=== PATIENT | female | born 2000 | race African-American/Black ===

== ENCOUNTER 2020-02-05 05:46 | Emergency (ER) | payer MEDICAID, SELFPAY ==
[2020-02-05 05:47] VITALS: BP 150/93; PULSE 85; RESP 16; TEMP 36.6; O2SAT 100; BMI 49.1
--- NOTE | 2020-02-05 05:57 | EKG12_ITS ---
Test Reason : CP Blood Pressure : / mmHG Vent. Rate : 076 BPM Atrial Rate : 076 BPM P-R Int : 134 ms QRS Dur : 090 ms QT Int : 390 ms P-R-T Axes : 023 044 025 degrees QTc Int : 438 ms Normal sinus rhythm with sinus arrhythmia Normal ECG Confirmed by RAFIA ACOSTA, ADARSH ([id number]), script editor NATALIE CRANE ([id number]) on 02/05/2020 1:27:12 PM Referred By: WANDA Confirmed By:ADARSH MORATAYA MD
--- NOTE | 2020-02-05 05:58 | ED.VISSUMM ---
- ER Visit Summary Date of Service: 02/05/20 Chief Complaint: Chest pain History of Present Illness: The patient is a [address] Saravia. She reports she was awakened from sleep today 3:30 AM by a sharp stabbing chest pain. Is 10 on 10 at worst and 7-10 currently. Is worsened by laying down. Sexually relieved by exertion. States that she took ibuprofen without relief. She reports she is been nausea and vomited twice. No blood in her emesis. Denies any shortness of breath or diaphoresis with this. Patient has no personal or family history of DVT. No recent travel. No ankle swelling or calf pain. On review of systems patient reports that she had dysuria and frequency for the past 2 days. Physical Examination: Vitals: Stable. Afebrile. General: Well-nourished and well-developed. Head: Normocephalic atraumatic. Neck: Supple, no lymphadenopathy. No JVD. Nontender. Cardiovascular: Regular rate and rhythm. No murmurs. Respiratory: No respiratory distress. Clear to auscultation bilaterally. Abdominal: Soft, nontender, nondistended, normal bowel sounds. No guarding, rebound, or peritoneal signs. Back: Nontender. Extremities: Nontender, no edema. Skin: Normal color, no rash. Neurologic: Alert and oriented ?3. Cranial nerves II through XII are intact. Normal strength and sensation. Psych: Normal affect. Test Results: EKG is sinus at [address] changes. CBC shows a white count of 12.2 and a hemoglobin 11.8. UA is negative. test is negative. BMP shows a chloride of 108. Chest x-ray is normal. Emergency Department Course and Treatment: Patient was given Zofran IV and a GI cocktail p.o. with significant relief. Treatment Plan: Patient will be discharged with Prilosec. Instructed to follow-up with her primary care physician in 3 to 5 days if not improving. Return to the emergency department for any worsening symptoms. Disposition: To home in improved and stable condition. Impression: 1. Atypical chest pain. 2. Dysuria. This note was generated with [employer] software. It may contain incorrect words, spelling, and punctuation that were not noted in review of the chart prior to signing ED Disposition - Plan for ED Patient: Instructions: ED Chest Pain Atypical Unkn Cause Prescriptions: Omeprazole [Prilosec] 20 mg PO DAILY #30 cap Prescription Printed Referrals: Dontrell Saravia MD [Primary Care Provider] - 3-5 Days if not improving
[2020-02-05] MEDS: Mag Hydrox/Al Hydrox/Simeth 30 ML UDC PO (06:05)
[2020-02-05] MEDS: Ondansetron 4 MG/2 ML Vial IV (06:05)
[2020-02-05 06:09] LABS: Absolute Lymphocyte Count 3.27 X10^3/uL (0.83-4.51); Absolute Neutrophil Count 7.5 X10^3/uL (2.0-7.7); Basophil# 0.05 X10^3/uL; Basophil% 0.4 % (0-1); Eosinophil# 0.58 X10^3/uL; Eosinophils% 4.8 % (0-5); Hematocrit 39.2 % (37-47); Hemoglobin 11.8 g/dL (12.0-15.0); Lymphocyte # 3.27 X10^3/ul (4.0); Lymphocyte % 26.9 % (19-41); Mean Corp Hgb Conc 30.1 g/dL (32-36); Mean Corpuscular Hgb 22.8 pg (27.0-32.0); Mean Corpuscular Volume 75.8 fL (81-99); Mean Platelet Vol. 10.1 fl (6.2-12.0); Monocyte% 5.8 % (0-10); NRBC Flagged by Analyzer 0 % (0-5); Neutrophil # 7.52 X10^3/uL (2.7-7.7); Neutrophil % 61.9 % (47-70); Platelet Count 418 K/mm3 (150-450); RBC Distribution Width CV 15.1 % (11.6-14.6); RBC Distribution Width SD 41.1 fl (35.1-43.9); Red Blood Count 5.17 M/mm3 (4.2-5.4); White Blood Count 12.2 K/mm3 (4.4-11.0)
--- NOTE | 2020-02-05 06:10 | RAD_ITS ---
STUDY: X-RAY CHEST REASON FOR EXAM: Female, 19 years old patient with chest pain, nausea and vomiting. TECHNIQUE: Single AP portable view of the chest. COMPARISON: 08-29-15. FINDINGS: The lungs are clear and expanded. There is no demonstrated pleural abnormality. There is borderline cardiomegaly. Normal mediastinum and dot. Normal visualized pulmonary arteries. Normal visualized aortic arch and descending thoracic aorta. Normal visualized thoracic spine. Normal visualized ribs, clavicles, and shoulders. There is no demonstrated abnormality of the visualized soft tissue structures of the upper abdomen. RAD/Chest 1 View (Portable) IMPRESSION: No radiographic evidence of acute cardiopulmonary disease. Electronically Signed: Nasrin Awad MD at 6:43 EDT , Service support ,
[2020-02-05 06:13] LABS: Mucous, Urine 0 SEEN /hpf (<or=2+); Squamous Epithelial Cells - UA 0 SEEN /hpf (5-10)
[2020-02-05 06:15] LABS: Color, Urine Yellow (Yellow); Glucose, Dipstick Normal (Normal); Ketone-Dipstick Negative (Negative); Leukocyte Esterase-Dipstick Negative /ul (Negative); Nitrite-Dipstick Negative (Negative); Occult Blood-Urine 10 /ul (Negative); Protein-Dipstick Negative (Negative); Urine Bilirubin Dipstick Negative (Negative); Urine Clarity Clear (Clear); Urine Urobilinogen Normal (Normal)
[2020-02-05 06:24] LABS: Amorphous Sediment 1+; Bacteria 3+ /hpf (None Seen); Red Blood Cells-Urine 0-5 SEEN /hpf (0-5); White Blood Cells 0-5 SEEN /hpf (0-5)
[2020-02-05 06:28] LABS: Internal QC Validated? YES +Cl - CLEAR BKGD; Pregnancy, Urine Negative Negative
[2020-02-05 06:39] LABS: Anion Gap 3 (5-15); BUN 8 mg/dL (7-18); BUN/Creat Ratio 10.8 RATIO (10-20); Calcium,Total 8.7 mg/dL (8.5-10.1); Chloride 108 mmol/L (98-107); Creatinine, Serum 0.74 mg/dL (0.55-1.02); EST Glomerular Filtration Rate 107 mL/min (>60); Est Glom Filt Rate - Afr Amer 129 mL/min (>60); Estimated Creatinine Clearance 114.47 ml/min; Glucose 106 mg/dL (74-106); Potassium 4.2 mmol/L (3.5-5.1); Sodium Level 138 mmol/L (136-145)
[2020-02-05 06:55] VITALS: BP 134/71; PULSE 78; RESP 18; O2SAT 99
== END 2020-02-05 07:34 | disposition home or self-care (01) ==
LOC: ED 06:31
PROVIDERS: Emergency Provider Emergency Medicine; PCP Pediatrics
DX: R07.9 Chest pain, unspecified (principal); R30.0 Dysuria
CPT/HCPCS: 71045; 80048; 81001; 81025; 85025; 93005; 96374; 99285; A4216; J2405

== ENCOUNTER 2020-09-08 15:30 | Emergency (ER) | payer MEDICAID, SELFPAY ==
[2020-09-08 15:32] VITALS: BP 153/59; PULSE 111; RESP 16; TEMP 36.4; O2SAT 97; BMI 42.3
[2020-09-08] MEDS: Lidocaine 1% (20 ml mdv) 20 ML Vial INFILT (15:56)
--- NOTE | 2020-09-08 16:02 | ED.DCSUM_ITS ---
- ER Visit Summary Date of Service: 09/08/20 Chief Complaint: Left hand laceration History of Present Illness: The patient is a 20 F presenting with left hand laceration. Patient was washing dishes. She states she slipped and fell. She fell onto a broken glass. She lacerated her left second and third digit. Her tetanus is up-to-date. No other injuries. Physical Examination: Vitals are stable. Patient is afebrile. Alert no acute distress. HEENT exam is unremarkable. Neck is supple. Lungs are clear and equal bilaterally. Heart is regular rate and rhythm. Abdomen is soft nontender nondistended. Extremities left 2nd digit 1cm distal laceration. Skin avulsion left third dig it. Tendon function is intact. Nailbed is intact. Normal cap refill. Skin is warm and dry. Remainder of exam is unremarkable. Emergency Department Course and Treatment: Left hand x-ray read by myself and radiology shows normal x-ray examination of the hand. Wound was irrigated. Digital block was performed with lidocaine. Irrigated with saline. 2, 5-0 simple sutures were placed. Advised wound care instructions. Advised return to the ED for worsening complaints. Disposition: Discharge home Impression: Left hand laceration, laceration repair This note was generated with [employer] dictation software. It may contain incorrect words, spelling, and punctuation that were not noted in review of the chart prior to signing ED Disposition - Plan for ED Patient: Instructions: ED Laceration, Hand: All Closures Referrals: Dontrell Saravia MD [Primary Care Provider] -
--- NOTE | 2020-09-08 16:05 | RAD_ITS ---
STUDY: X-RAY - LEFT HAND REASON FOR EXAM: Female, 20 years old. fall, lac TECHNIQUE: 3 view(s) of the hand. COMPARISON: None. FINDINGS: Normal radiocarpal articulation. Normal distal radioulnar joint. Normal visualized carpal bones. Normal carpal articulations Normal carpometacarpal articulation of the thumb. Normal second through fifth carpometacarpal joints. Normal metacarpi. Normal metacarpophalangeal joint of the thumb. Normal interphalangeal joint of the thumb. Normal proximal and distal phalanges of the thumb. Normal metacarpophalangeal joints of the second through fifth fingers. Normal proximal and distal interphalangeal joints of the second through fifth fingers. Normal phalanges of the second through fifth fingers. The soft tissue structures are unremarkable. RAD/Hand Min 3 Views IMPRESSION: Normal x-ray examination of the hand. Electronically Signed: Manuel Ernst MD ([place]) at 16:25 EST , Service support ,
--- NOTE | 2020-09-08 16:05 | ED.DEP ---
ED Disposition - Plan for ED Patient: Instructions: ED Laceration, Hand: All Closures Referrals: Dontrell Saravia MD [Primary Care Provider] -
== END 2020-09-08 17:03 | disposition home or self-care (01) ==
LOC: ED 16:20
PROVIDERS: Emergency Provider Emergency Medicine; PCP Pediatrics
DX: S61.412A Laceration without foreign body of left hand, initial encounter (principal); Y93.G1 Activity, food preparation and clean up; W01.0XXA Fall on same level from slipping, tripping and stumbling without subsequent striking against object, initial encounter
CPT/HCPCS: 12001; 73130; 99282

== ENCOUNTER 2022-07-16 04:44 | Emergency (ER) | payer MEDICAID, SELFPAY ==
[2022-07-16 04:47] VITALS: BP 140/95; PULSE 71; RESP 16; TEMP 36.5; O2SAT 100; BMI 43.1
--- NOTE | 2022-07-16 05:09 | EKG12_ITS ---
Test Reason : DYSRHYTHMIA Blood Pressure : / mmHG Vent. Rate : 063 BPM Atrial Rate : 063 BPM P-R Int : 136 ms QRS Dur : 086 ms QT Int : 432 ms P-R-T Axes : 022 035 017 degrees QTc Int : 442 ms Normal sinus rhythm with sinus arrhythmia Normal ECG Confirmed by PIETER ACOSTA, APARNA ([id number]), editor news ALISHA CLARK ([id number]) on 07/20/2022 10:09:34 AM Referred By: TOBIAS Confirmed By:MINA STAPLETON MD
[2022-07-16] MEDS: 0.9% Normal Saline 1,000 ML 999 ML IV (05:20)
[2022-07-16] MEDS: LORazepam 2 MG/ML Syringe 1 MG IV (05:20)
[2022-07-16 05:28] LABS: Absolute Lymphocyte Count 2.56 X10^3/uL (0.83-4.51); Absolute Neutrophil Count 6.3 X10^3/uL (2.0-7.7); Basophil# 0.03 X10^3/uL; Basophil% 0.3 % (0-1); Eosinophil# 0.09 X10^3/uL; Eosinophils% 0.9 % (0-5); Hematocrit 38.9 % (37-47); Hemoglobin 12.1 g/dL (12.0-15.0); Lymphocyte # 2.56 X10^3/ul (0.83-4.51); Lymphocyte % 26.5 % (19-41); Mean Corp Hgb Conc 31.1 g/dL (32-36); Mean Corpuscular Hgb 24.4 pg (27.0-32.0); Mean Corpuscular Volume 78.4 fL (81-99); Mean Platelet Vol. 10.4 fl (6.2-12.0); Monocyte# 0.71 X10^3/uL; Monocyte% 7.3 % (0-10); NRBC Flagged by Analyzer 0 % (0-5); Neutrophil # 6.26 X10^3/uL (2.7-7.7); Neutrophil % 64.8 % (47-70); Platelet Count 356 K/mm3 (150-450); RBC Distribution Width CV 13.7 % (11.6-14.6); RBC Distribution Width SD 38.6 fl (35.1-43.9); Red Blood Count 4.96 M/mm3 (4.2-5.4); White Blood Count 9.7 K/mm3 (4.4-11.0)
--- NOTE | 2022-07-16 05:33 | EDS_ITS ---
HPI History of Present Illness Chief Complaint: Chest Pain Narrative Narrative: Patient is a 22-year-old female with remote history of depression/anxiety. She states that roughly 1 to 2 years ago she was started on medication to help with her symptoms but it made her feel like a zombie so she stopped taking it. She states that over the past 1 to 2 days she has had a few bouts of nausea and vomiting. She states that this evening she was sleeping when she awoke around 2:30 in the morning and was feeling very anxious. She states with that she noticed some chest discomfort. She denies any illicit drug use and she denies any known cardiac history at a young age in her family. She also denies any recent surgery travel or history of DVT/PE. She states she tried home techniques to get her symptoms under control but cannot do so and therefore EMS was called and brings her in for evaluation. [facility] Medical History Anxiety Asthma Home Medications buspirone 7.5 mg tablet 7.5 mg PO BID 30 days #60 tabs 07/16/22 [Rx Last Taken Unknown] ibuprofen 600 mg tablet 600 mg PO 4X/DAY PRN PRN pain #40 tabs 07/16/22 [Rx Last Taken Unknown] ondansetron 4 mg disintegrating tablet 4 mg PO TID PRN nausea and vomiting #21 tabs 07/16/22 [Rx Last Taken Unknown] Allergy/AdvReac Type Severity Reaction Status Date / Time No Known Allergies Allergy Verified 07/16/22 04:46 Surgical History no surgical history Social History Smoking Status: Current some day smoker tobacco type: e-cigarettes [facility] [place] ED Constitutional Constitutional ED: Denies chills or fever(s) ENT ENT ED: Denies sore throat Cardiovascular Cardiovascular: Reports chest pain Respiratory/Chest Respiratory/Chest: Denies cough or dyspnea Gastrointestinal Gastrointestinal: Reports nausea and vomiting; Denies abdominal pain or diarrhea Genitourinary Genitourinary ED: Denies dysuria Musculoskeletal Musculoskeletal: Denies myalgias Integumentary Denies rash Neurologic Neurologic: Denies headache(s) Psychiatric Psychiatric: Reports anxiety; Denies suicidal ideation or suicidal thoughts Hematologic/Lymphatic Hematologic/Lymphatic: Denies easy bleeding or easy bruising EXAM Physical Exam Const Vital Signs: 07/16/22 04:47 07/16/22 04:49 Temperature 97.7 F L Temperature Source Temporal Pulse Rate 71 Respiratory Rate 16 Respiratory Effort Normal Respiratory Pattern Normal Blood Pressure 140/95 H Blood Pressure Mean 110 Pulse Ox 100 Oxygen Delivery Method Room Air Positive well nourished, well developed and obese General Appearance ED: well developed Nutritional Appearance: obese HEENT Reports moist mucous membranes Eyes PERRL and EOMs intact bilaterally Neck supple Chest Wall Chest Narrative: There is mild reproducible pain with palpation of the anterior chest wall along the costal/sternal joint region most consistent with costochondritis without bony deformity or crepitus noted Resp normal respiratory effort and clear to auscultation bilaterally Cardio regular rate and regular rhythm Rate: other Other Details: Radial pulses are plus 2 out of 4 bilaterally are equal and symmetric GI normal to inspection, nondistended, normoactive bowel sounds, non-tender, non- distended and no masses Auscultation: normoactive bowel sounds Palpation: soft Extremity normal to inspection Extremity Narrative: No asymmetric edema no pitting edema negative Homans' sign bilaterally Neuro oriented x3 and CN's II-XII intact bilaterally Sensorium / Orientation: alert Psych Psych Narrative: Patient has a nervous/anxious affect Skin no rashes or lesions noted MDM MDM MDM Narrative Medical decision making narrative: Patient presented to the ER in no acute distress but with a very nervous/anxious affect and tachypnea secondary to it. She is very low risk for cardiac disease and she does report pain along the costal joint/sternum most consistent with costochondritis that I feel is from her breathing hard and fast. I did elect to perform a basic work-up on her because of her persistent anxiety symptoms and this revealed no clinically significant findings. The patient's D-dimer was just barely elevated at 0.51. However she is not on control/hormones she has not had any recent surgery or travel there is no family history of cardiac disease she is not tachycardic and she does not have pain with inspiration and therefore at this just slight elevation I do not feel it is worthwhile to provide her with a CT scan with IV contrast and risk radiation exposure and possible allergic reaction. Moreover the patient has had resolution of pain with treatment of the anxiety while in the ER. Therefore this time I will discharge the patient home with symptomatic medications for her anxiety and she can follow-up with her family doctor on an outpatient basis Lab Data Attestation: I reviewed the patient's lab results. Labs: Laboratory Results - last 24 hr 07/16/22 07/16/22 07/16/22 04:20 04:20 04:20 WBC 9.7 RBC 4.96 Hgb 12.1 Hct 38.9 MCV 78.4 L MCH 24.4 L MCHC 31.1 L RDW Std Deviation 38.6 RDW Coeff of Alexandr 13.7 Plt Count 356 MPV 10.4 Immature Gran % (Auto) 0.200 Neut % (Auto) 64.8 Lymph % (Auto) 26.5 [place] % (Auto) 7.3 Eos % (Auto) 0.9 Baso % (Auto) 0.3 Absolute Neuts (auto) 6.3 Absolute Lymphs (auto) 2.56 Nucleated RBC % 0 D-Dimer Quant (PE/DVT) 0.51 H* Sodium 141 Potassium 3.3 L Chloride 108 H Carbon Dioxide 22.0 Anion Gap 11 BUN 12 Creatinine 0.73 Estim Creat Clear Calc 113.16 Est GFR (MDRD) Af Amer 128 Est GFR (MDRD) Non-Af 106 BUN/Creatinine Ratio 16.5 Glucose 113 H Calcium 8.8 Magnesium 2.1 Troponin I High Sens 3 Serum , Qual 07/16/22 04:20 WBC RBC Hgb Hct MCV MCH MCHC RDW Std Deviation RDW Coeff of Alexandr Plt Count MPV Immature Gran % (Auto) Neut % (Auto) Lymph % (Auto) [place]atham % (Auto) Eos % (Auto) Baso % (Auto) Absolute Neuts (auto) Absolute Lymphs (auto) Nucleated RBC % D-Dimer Quant (PE/DVT) Sodium Potassium Chloride Carbon Dioxide Anion Gap BUN Creatinine Estim Creat Clear Calc Est GFR (MDRD) Af Amer Est GFR (MDRD) Non-Af BUN/Creatinine Ratio Glucose Calcium Magnesium Troponin I High Sens Serum , Qual NEGATIVE Discharge Plan Triage Chief Complaint: Chest Pain ED Provider: Thom Zavala Dx/Rx/DC Orders Clinical Impression: Costochondritis, Acute anxiety Instructions: Costochondritis, ED Anxiety Reaction Prescriptions: New ondansetron 4 mg tablet,disintegrating 4 mg PO TID PRN (Reason: nausea and vomiting) Qty: 21 0RF buspirone 7.5 mg tablet 7.5 mg PO BID 30 Days Qty: 60 1RF ibuprofen 600 mg tablet 600 mg PO 4X/DAY PRN PRN (Reason: pain) Qty: 40 0RF Stand Alone Forms: Work / School Excuse Primary Care Provider: Care Physician,No Primary Referrals: Rimma Ceron MD [Med Staff - [employer]] - Care Physician,No Primary [Primary Care Provider] - Activity Restrictions/Additional Instructions: Please return to the ER should you have any further concerns Disposition Disposition: Home, Self Care
[2022-07-16] MEDS: Ondansetron 4 MG/2 ML Vial IV (05:38)
[2022-07-16 05:39] LABS: Internal QC Validated? YES +Cl - CLEAR BKGD; Pregnancy, Serum, hCG Quali. NEGATIVE Negative
[2022-07-16 05:46] LABS: Anion Gap 11 (5-15); BUN 12 mg/dL (7-18); BUN/Creat Ratio 16.5 RATIO (10-20); Calcium,Total 8.8 mg/dL (8.5-10.1); Chloride 108 mmol/L (98-107); Creatinine, Serum 0.73 mg/dL (0.55-1.02); EST Glomerular Filtration Rate 106 mL/min (>60); Est Glom Filt Rate - Afr Amer 128 mL/min (>60); Estimated Creatinine Clearance 113.16 ml/min; Glucose 113 mg/dL (74-106); Magnesium 2.1 mg/dL (1.6-2.6); Potassium 3.3 mmol/L (3.5-5.1); Sodium Level 141 mmol/L (136-145); Troponin-I HS 3 pg/mL (3.0-54.0)
[2022-07-16 06:26] LABS: D-Dimer Quantitative (DVT/PE) 0.51 FEU/ug/m (0.27-0.49)
[2022-07-16 06:50] VITALS: PULSE 79; RESP 16; O2SAT 98
== END 2022-07-16 06:52 | disposition home or self-care (01) ==
PROVIDERS: Emergency Provider Emergency Medicine; Visit Provider Emergency Medicine
DX: M94.0 Chondrocostal junction syndrome [Tietze] (principal); F41.9 Anxiety disorder, unspecified; F17.290 Nicotine dependence, other tobacco product, uncomplicated; R07.9 Chest pain, unspecified; F32.A Depression, unspecified; J45.909 Unspecified asthma, uncomplicated
CPT/HCPCS: 80048; 83735; 84484; 84703; 85025; 85379; 93005; 96374; 96375; 99285; J7030; A4216; J2405

== ENCOUNTER 2023-10-09 18:49 | Emergency (ER) | payer SELFPAY ==
[2023-10-09 18:50] VITALS: BP 147/91; PULSE 125; RESP 18; TEMP 36.4; O2SAT 97; BMI 41.1
--- NOTE | 2023-10-09 18:58 | ED.VIS.LOWEX ---
HPI History of Present Illness HPI Narrative: Patient presents with a left ankle injury that occurred last night. Patient states she thinks she tripped over a curb. Patient states she thinks she inverted her ankle. Patient states her pain is mainly over the lateral aspect of her left ankle. Patient describes it as throbbing. Patient states the pain radiates up her leg. Patient denies any head injury or loss of consciousness. Patient admits to some slight numbness to the lateral aspect of her left ankle and leg. Patient states her pain is worse with walking and better with rest. Patient denies any weakness. Chief Complaint: Lower Extremity Injury Informant: patient Onset/Context/Timing Onset: Yesterday Context: Sudden Onset Timing: Continuous Quality of Pain: Throbbing Location: Left ankle Worsened by: Walking Relieved by: Rest Associated Symptoms Associated Symptoms: Negative for Parasthesia, Weakness or Loss of Funtion [facility] Medical History Anxiety Asthma Home Medications buspirone 7.5 mg tablet 7.5 mg PO BID 30 days #60 tabs 07/16/22 [Rx Last Taken Unknown] ibuprofen 600 mg tablet 600 mg PO 4X/DAY PRN PRN pain #40 tabs 07/16/22 [Rx Last Taken Unknown] ondansetron 4 mg disintegrating tablet 4 mg PO TID PRN nausea and vomiting #21 tabs 07/16/22 [Rx Last Taken Unknown] Allergy/AdvReac Type Severity Reaction Status Date / Time peanut Allergy Mild Swelling Verified 10/09/23 18:51 Surgical History no surgical history no surgical history Social History Smoking Status: Current some day smoker tobacco type: e-cigarettes ROS ROS ED Constitutional Constitutional ED: Denies chills or fever(s) Eyes Eyes: Denies blurry vision or change in vision ENT ENT ED: Denies rhinorrhea or sore throat Cardiovascular Cardiovascular: Denies chest pain or palpitations Respiratory/Chest Respiratory/Chest: Reports cough; Denies dyspnea Gastrointestinal Gastrointestinal: Denies nausea or vomiting Genitourinary Genitourinary ED: Denies dysuria or hematuria Musculoskeletal Musculoskeletal: Denies back pain or neck pain Integumentary Denies abscess or rash Neurologic Neurologic: Denies headache(s) or weakness Allergic/Immunologic Allergic/Immunologic ED: Denies mouth swelling or urticaria EXAM Physical Exam Const Vital Signs: 10/09/23 18:50 Temperature 97.5 F L Temperature Source Temporal Pulse Rate 125 H Respiratory Rate 18 Blood Pressure 147/91 H Blood Pressure Mean 109 Pulse Ox 97 Oxygen Delivery Method Room Air Positive well nourished, well developed and obese General Appearance ED: well developed and NAD Nutritional Appearance: obese HEENT Reports moist mucous membranes Neck full ROM and supple Extremity Extremity Narrative: There is tenderness and edema over the lateral aspect of the left ankle. There is no ecchymosis. There is no obvious deformity noted. Range of motion was limited in all motions of the left ankle secondary to pain. Pedal pulses are equal bilaterally. There is no tenderness over the fifth metatarsal. There is no tenderness over the proximal fibula. There is no laxity appreciated. Neuro oriented x3, CN's II-XII intact bilaterally, moves all extremities and no sensory deficits noted Sensorium / Orientation: alert Motor Exam: strength 5/5 throughout Psych mental status grossly normal MDM MDM MDM Narrative Medical decision making narrative: Differential diagnosis includes sprain, contusion, and fracture. X-rays of the left ankle will be obtained to assess for fracture. Radiography Diagnostic Testing: Clinical Impression(s) from Imaging Studies Ankle X-Ray 10/09/23 19:15 IMPRESSION: 1. No evidence fracture, malalignment or focal bony or joint space abnormality. Electronically Signed: Elian Landaverde MD at 19:36 EDT Reading Location ID and State: [facility] / [place] Tel , Service support , X-rays of the left ankle were obtained. There are 3 views. On my independent interpretation, there is no acute fracture. There is no soft tissue swelling noted. Radiologist also interpreted the x-rays and agrees. Discharge Plan Triage Chief Complaint: Lower Extremity Injury ED Provider: Cale Alvarado Dx/Rx/DC Orders Clinical Impression: Fall, Left ankle sprain Instructions: ED Ankle Sprain (Adult) Prescriptions: No Action ondansetron 4 mg tablet,disintegrating 4 mg PO TID PRN (Reason: nausea and vomiting) Qty: 21 0RF buspirone 7.5 mg tablet 7.5 mg PO BID 30 Days Qty: 60 1RF ibuprofen 600 mg tablet 600 mg PO 4X/DAY PRN PRN (Reason: pain) Qty: 40 0RF Primary Care Provider: Care Physician,No Primary Referrals: Cale Richardson MD [Med Staff - [facility]] - 5-7 Days Care Physician,No Primary [Primary Care Provider] - Disposition Disposition: Home, Self Care
--- NOTE | 2023-10-09 19:15 | RAD_ITS ---
INDICATION: INJURY/PAIN EXAMINATION/TECHNIQUE: X-RAY - LEFT XR Ankle Min 3 Views 3 VIEWS COMPARISON: No relevant prior comparison study available FINDINGS: SOFT TISSUES: No soft tissue swelling or gas. No radiopaque foreign body. BONES/JOINTS: No acute fracture or subluxation.. Normal alignment. Preservation of the joint space.. No sclerotic or destructive changes observed. RAD/Ankle min 3 Views IMPRESSION: 1. No evidence fracture, malalignment or focal bony or joint space abnormality. Electronically Signed: Elian Landaverde MD at 19:36 EDT ,
[2023-10-09 20:13] VITALS: BP 97/81; PULSE 78; RESP 16; TEMP 36.7; O2SAT 100
== END 2023-10-09 20:18 | disposition home or self-care (01) ==
LOC: ED 19:29
PROVIDERS: Emergency Provider Emergency Medicine; Visit Provider Emergency Medicine
DX: S93.402A Sprain of unspecified ligament of left ankle, initial encounter (principal); F17.290 Nicotine dependence, other tobacco product, uncomplicated; E66.9 Obesity, unspecified; W19.XXXA Unspecified fall, initial encounter
CPT/HCPCS: 73610; 99283

== ENCOUNTER 2024-11-10 14:24 | Emergency (ER) | payer SELFPAY ==
[2024-11-10 14:25] VITALS: BP 125/82; PULSE 87; RESP 19; TEMP 36.6; O2SAT 99; BMI 38.9
--- NOTE | 2024-11-10 14:59 | EDS_ITS ---
<Statement entered by Nathaniel Mendoza DO - 11/10/24 15:12> Patient was seen and examined with physician case assistant Michelle All components of the history and physical confirmed and agreed. History of present illness and physical exam: Patient is a 24-year-old female with no known significant past medical history who presents to the emergency department with a chief complaint of cut to her left thumb. States that she was chopping lettuce and felt a crunch and noted that her thumb was bleeding and states that she did not look at this and immediately came here to be evaluated. States that she is right-hand dominant states that she is unsure when her last tetanus shot was. Review of systems: Agree above Physical exam: Agree with above MDM Patient is a 24-year-old female who presented to the emerged part with a chief complaint of left thumb avulsion injury after cutting her finger with a knife. On the differential diagnosis includes but limited to avulsion injury, laceration, fracture although have low suspicion for fractures this is avulsion injury noted. Patient tetanus shot was updated. Patient's wound was copiously irrigated. She is neurovascular intact has full range of motion of her thumb. Patient was advised to return with concern for pus coming out of fingers surrounding erythema fusiform swelling or any other concerns. She is to follow- up with her primary care physician otherwise. All question concerns answered she was discharged home in stable condition. Final impression: Avulsion of left thumb skin Avulsion of the left thumbnail Disposition: Patient will be discharged home in stable condition Supervising attending attestation: Nathaniel Mendoza D.O. [facility] History of Present Illness Chief Complaint: Laceration Narrative Narrative: 24-year-old female was chopping lettuce and lacerated the tip of her left thumb. She states she felt a crunch and it was bleeding and did not look at it was squeamish and did not want to look at it so presents for evaluation. She is right-hand dominant. Last tetanus unknown. [facility] Medical History Anxiety Asthma Home Medications ?Medication ?Instructions ?Recorded ?Last Taken ?Type buspirone 7.5 mg tablet 7.5 mg PO BID 30 days #60 ta bs 07/16/22 Unknown Rx ibuprofen 600 mg tablet 600 mg PO 4X/DAY PRN PRN amie n #40 07/16/22 Unknown Rx tabs ondansetron 4 mg disintegrating 4 mg PO TID PRN nausea and 07/16/22 Unknown Rx tablet vomiting #21 tabs Allergy/AdvReac Type Severity Reaction Status Date / Time peanut Allergy Mild Swelling Verified 11/10/24 14:26 Social History Smoking Status: Current some day smoker tobacco type: e-cigarettes ROS ROS ED ROS Narrative Neuro: Negative for motor/sensory dysfunction. Skin: Positive for laceration. EXAM Physical Exam Narrative Exam Narrative: CONST: Patient sitting in no acute distress. EYES: Normal inspection. SKIN: On the left thumb the tip of the skin and nail are avulsed. Full range of motion of left wrist and hand including all thumb joints. Normal motor and sensory function in median radial and ulnar distributions, 2+ radial pulse, madelin sk cap refill. NEURO: Alert and answering questions appropriately. PSYCH: Normal affect. Const Vital Signs: 11/10/24 14:25 Temperature 98 F Temperature Source Oral Pulse Rate 87 Respiratory Rate 19 H Blood Pressure 125/82 H Blood Pressure Mean 96 Pulse Ox 99 Oxygen Delivery Method Room Air MDM MDM MDM Narrative Medical decision making narrative: 24-year-old [id number] female avulsed the tip of her left thumb and tip of the thumb nail. It is at the level of the dermis. I have no concern for open fracture and do not think an x-ray is indicated. She has full range of motion and is neurovascularly intact. Wound was cleansed and dressed and she was given a tetanus update. She was given wound care instructions and discharged in stable condition. Discharge Plan Triage Chief Complaint: Laceration ED Midlevel Provider: Michelle Newton ED Provider: Nathaniel Mendoza Dx/Rx/DC Orders Clinical Impression: Avulsion of skin of left thumb, Avulsion of nail of left thumb Instructions: ED Skin Tear (Skin Avulsion) Prescriptions: No Action ondansetron 4 mg tablet,disintegrating 4 mg PO TID PRN (Reason: nausea and vomiting) Qty: 21 0RF buspirone 7.5 mg tablet 7.5 mg PO BID 30 Days Qty: 60 1RF ibuprofen 600 mg tablet 600 mg PO 4X/DAY PRN PRN (Reason: pain) Qty: 40 0RF Primary Care Provider: Care Physician,No Primary Referrals: Care Physician,No Primary [Primary Care Provider] - Activity Restrictions/Additional Instructions: Keep the area clean and bandage until it heals. If it starts to bleed use gauze and hold direct pressure on the wound for 20 minutes without letting go. If you develop any signs of infection like redness, swelling, or pus please be reeval uated. Print Language: Nigerian Disposition Disposition: Home, Self Care
[2024-11-10] MEDS: Diphth,Pertuss(Acell),Tet Vac 0.5 ML Vial IM (15:11)
[2024-11-10 15:19] VITALS: BP 110/84; PULSE 60; RESP 14; TEMP 36.8; O2SAT 100
== END 2024-11-10 15:33 | disposition home or self-care (01) ==
LOC: ED 15:15
PROVIDERS: Emergency Provider Emergency Medicine; Visit Provider Emergency Medicine
DX: S61.112A Laceration without foreign body of left thumb with damage to nail, initial encounter (principal); W26.0XXA Contact with knife, initial encounter; F17.290 Nicotine dependence, other tobacco product, uncomplicated; F41.9 Anxiety disorder, unspecified; Z23 Encounter for immunization; Z79.899 Other long term (current) drug therapy
CPT/HCPCS: 90471; 90715; 99282